=== PATIENT | female | born 1955 | race Hispanic/Latino ===

== ENCOUNTER 2020-03-29 12:24 | Outpatient (CLI) | payer OTHER ==
--- NOTE | 2020-03-29 13:18 | ULT ---
Renal ultrasound: 03/29/2020 COMPARISON: None HISTORY: Kidney stone TECHNIQUE: Multiplanar grayscale sonographic imaging of the kidneys and urinary bladder obtained. FINDINGS: The right kidney measures 10.1 x 4.2 x 5.0 cm. Urinary bladder appears unremarkable. Left kidney measures 8.3 x 4.2 x 5.2 cm. No discrete renal stone, hydronephrosis, or mass lesion seen . IMPRESSION: Grossly unremarkable renal ultrasound. If there is clinical concern for nephrolithiasis, KUB or CT suggested.
== END 2020-03-29 12:25 | disposition home or self-care (01) ==
LOC: BICULT 12:24
PROVIDERS: ATTEND Advanced Practice Midwife
DX: N20.0 Calculus of kidney (principal)
CPT/HCPCS: 76770

== ENCOUNTER 2022-08-22 10:36 | Outpatient (CLI) | payer MEDICARE | END 2022-08-22 10:37 | disposition home or self-care (01) | LOC: BICMAMMO 10:36 | PROVIDERS: ATTEND Internal Medicine Rheumatology | DX: M81.0 Age-related osteoporosis without current pathological fracture (principal); M54.50 Low back pain, unspecified; S06.0X0S Concussion without loss of consciousness, sequela; M06.09 Rheumatoid arthritis without rheumatoid factor, multiple sites; M32.8 Other forms of systemic lupus erythematosus; M25.562 Pain in left knee; M25.561 Pain in right knee; M54.2 Cervicalgia; M85.89 Other specified disorders of bone density and structure, multiple sites; W07.XXXS Fall from chair, sequela; Z79.899 Other long term (current) drug therapy | CPT/HCPCS: 77080 ==

== ENCOUNTER 2023-03-25 04:57 | Inpatient (IN) | payer MEDICARE, MEDICAID ==
[2023-03-25 06:17] VITALS: BMI 30.7
[2023-03-25] MEDS ORDERED: Senokot S 8.6-50 MG TAB PO PRN (06:34)
[2023-03-25] MEDS ORDERED: Calcium Carbonate 500 MG ChewTAB PO PRN (06:34)
[2023-03-25] MEDS ORDERED: Ondansetron ODT 4 MG TAB PO PRN (06:34)
[2023-03-25] MEDS ORDERED: Piperacillin/Tazobactam 3.375 GM in Sodium Chloride 0.9% 100 ML IVPB SCH ×2 (08:00→10:00)
[2023-03-25] MEDS ORDERED: Cefepime 2 GM in Sodium Chloride 0.9% 100 ML IVPB SCH (08:15)
[2023-03-25] MEDS ORDERED: Famotidine 20 MG TAB PO SCH (09:00)
[2023-03-25] MEDS ORDERED: Dicyclomine 10 MG CAP PO PRN (09:11)
[2023-03-25] MEDS ORDERED: Magnesium 2 GM/50 ML(in water) 2 GM in Premix Bag 1 BAG IVPB SCH (09:30)
[2023-03-25] MEDS: Dextrose 5%-Lactated Ringers 1,000 ML IV SCH (09:45)
[2023-03-25] MEDS: Piperacillin/Tazobactam 3.375 GM in Sodium Chloride 0.9% 100 ML IVPB SCH ×2 (11:10→17:17)
[2023-03-25] MEDS ORDERED: metroNIDAZOLE 500 MG in Premix Bag 1 BAG IVPB SCH (14:00)
[2023-03-25] MEDS: Acetaminophen 325 MG TAB PO PRN (14:31)
[2023-03-25] MEDS ORDERED: Cholecalciferol 1,000 UNITS (25 MCG) TAB PO SCH (21:00)
[2023-03-25] MEDS ORDERED: Multivit, Therapeutic 1 TAB PO SCH (21:00)
[2023-03-25] MEDS ORDERED: Cyanocobalamin (Vitamin B-12) 1,000 MCG TAB PO SCH (21:00)
[2023-03-25] MEDS ORDERED: Folic Acid 1 MG TAB PO SCH (21:00)
[2023-03-26] MEDS: Piperacillin/Tazobactam 3.375 GM in Sodium Chloride 0.9% 100 ML IVPB SCH ×2 (00:19→08:43)
[2023-03-26] MEDS: Acetaminophen 325 MG TAB PO PRN ×2 (00:27→08:44)
[2023-03-26] MEDS: Dextrose 5%-Lactated Ringers 1,000 ML IV SCH (04:35)
[2023-03-26 06:41] LABS: #Monocytes 0.9 thou/uL (0.11-0.59); #Neutrophils 3.9 thou/uL (1.40-6.50); %Basophils 0.3 % (0.0-1.0); %Eosinophils 0.5 % (0.0-10.0); %Lymphocytes 27.9 % (21.0-51.0); %Neutrophils 58.1 % (42.0-75.0); Hematocrit 36.4 % (36.0-47.0); Hemoglobin 11.8 g/dL (12.0-16.0); Mean Corpuscular HGB CONC 32.4 g/dL (32.0-36.0); Mean Corpuscular Hemoglobin 31.2 pg (27.0-31.0); Mean Corpuscular Volume 96.3 fl (78.0-98.0); Mean Platelet Volume 10.6 fL (7.4-10.4); Platelet Count 204 10x3/uL (130-400); RBC Distribution Width 13.6 % (11.5-14.5); Red Blood Cell (RBC) Count 3.78 mill/uL (4.20-5.40); White Blood Cell (WBC) Count 6.6 10x3/uL (4.8-10.8)
[2023-03-26 06:59] LABS: Anion Gap 9 mmol/L (10-20); BUN (Urea Nitrogen) 6 mg/dL (9.8-20.1); Calc. Creatinine Clearance 93 mL/min (70-130); Calcium 7.7 mg/dL (7.8-10.44); Carbon Dioxide 25 mmol/L (23-31); Chloride 108 mmol/L (98-107); Estimated GFR 96; Glucose 120 mg/dL (80-115); Potassium 3.7 mmol/L (3.5-5.1); Sodium 138 mmol/L (136-145)
[2023-03-26 08:11] VITALS: TEMP 98.4
[2023-03-26 12:54] VITALS: BP 116/77
== END 2023-03-26 17:22 | disposition home or self-care (01) | DRG 872 ==
LOC: T4-B 06:06 → OBSVTOIN 07:58
PROVIDERS: ADMIT Internal Medicine; ATTEND Emergency Medicine
DX: A41.9 Sepsis, unspecified organism (principal); K57.32 Diverticulitis of large intestine without perforation or abscess without bleeding; A09 Infectious gastroenteritis and colitis, unspecified; M06.9 Rheumatoid arthritis, unspecified; M32.9 Systemic lupus erythematosus, unspecified; K21.9 Gastro-esophageal reflux disease without esophagitis; Z79.899 Other long term (current) drug therapy; M81.0 Age-related osteoporosis without current pathological fracture; M19.90 Unspecified osteoarthritis, unspecified site; Z90.710 Acquired absence of both cervix and uterus; E83.42 Hypomagnesemia; N18.2 Chronic kidney disease, stage 2 (mild); E66.9 Obesity, unspecified; Z68.30 Body mass index [BMI] 30.0-30.9, adult; K57.30 Diverticulosis of large intestine without perforation or abscess without bleeding
CPT/HCPCS: 36415; 80048; 85025; J2543; J3475; J3490; Q0162